=== PATIENT | female | born 2000 | race African-American/Black ===

== ENCOUNTER 2021-11-02 12:57 | Emergency (ER) | payer OTHER, SELFPAY ==
[2021-11-02 13:02] VITALS: BP 114/67; PULSE 76; TEMP 36.1; O2SAT 99; BMI 21.9
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
== END 2021-11-02 13:46 | disposition home or self-care (01) ==
LOC: ED 13:38
PROVIDERS: Emergency Provider Family Medicine
DX: S16.1XXA Strain of muscle, fascia and tendon at neck level, initial encounter (principal); V19.9XXA Pedal cyclist (driver) (passenger) injured in unspecified traffic accident, initial encounter
CPT/HCPCS: 99283

== ENCOUNTER 2023-10-26 14:18 | Outpatient (CLI) | payer OTHER, SELFPAY ==
[2023-10-26 18:10] LABS: Chlamydia DNA Amplified* NOT DETECTED (No Detected); GC DNA Amplified* NOT DETECTED (No Detected)
== END 2023-10-26 14:19 | disposition home or self-care (01) ==
PROVIDERS: Visit Provider Registered Nurse
DX: Z01.419 Encounter for gynecological examination (general) (routine) without abnormal findings (principal); R19.5 Other fecal abnormalities; Z13.6 Encounter for screening for cardiovascular disorders; Z13.1 Encounter for screening for diabetes mellitus; Z11.3 Encounter for screening for infections with a predominantly sexual mode of transmission
CPT/HCPCS: 80061; 82947; 84443; 87491; 87591